=== PATIENT | female | born 1935 | race Caucasian/White ===

== ENCOUNTER → 2016-05-09 | Outpatient (CLI) | payer OTHER, MEDICARE ==
[2016-05-09 16:23] LABS: HEMOGLOBIN A1C 8.93 % (4.2-6.0); MEAN BLOOD GLUCOSE (CALC) 211.369 mg/dL
[2016-05-09 16:26] LABS: CALCIUM 10.9 mg/dL (8.7-10.7); PHOSPHORUS 3.5 mg/dl (2.4-4.3); POTASSIUM 4.4 meq/L (3.8-5.2)
== END ==
LOC: MOB LAB 14:50
DX: E10.9 Type 1 diabetes mellitus without complications (principal); Z79.4 Long term (current) use of insulin; E83.52 Hypercalcemia; R91.8 Other nonspecific abnormal finding of lung field; E10.65 Type 1 diabetes mellitus with hyperglycemia; J44.9 Chronic obstructive pulmonary disease, unspecified; I10 Essential (primary) hypertension; E03.9 Hypothyroidism, unspecified; E55.9 Vitamin D deficiency, unspecified; F17.219 Nicotine dependence, cigarettes, with unspecified nicotine-induced disorders
CPT/HCPCS: 36415; 80048; 83036; 84100; 99213; G0463

== ENCOUNTER 2016-09-15 12:10 | Inpatient (IN) | payer OTHER, MEDICARE ==
[2016-09-15] MEDS ORDERED: ONDANSETRON 4 MG/2 ML VIAL IVP ONE (12:11)
[2016-09-15] MEDS ORDERED: Sodium Chloride 0.9% 1,000 ML PRIMARY IV ONE (12:11)
--- NOTE | 2016-09-15 12:18 | PDOC ---
General Adult HPI - General Chief Complaint: Diabetic Complaint Stated Complaint: DIABETIC CONCERN Date Seen by Provider: 09/15/16 Time Seen by Provider: 12:13 Source: POSITIVE: EMS Exam Limitations: POSITIVE: Clinical condition Nurse's Notes Reviewed & Considered: Yes - History of Present Illness Initial Comment: Patient was found to be obtunded by health caregiver at home. EMS was contacted and has transported patient to the emergency department for evaluation. In route to glucose was read above the level of the device and registers high. This device registers only to 500. Patient received 700 mL of normal saline in route. Review of systems are unavailable because the patient' s obtundation. She will open her eyes to command and speaks yes or no answers but is minimally communicative. Have you received a tetanus shot in the past 10 years?: Yes Timing: REPORTS: Unknown Duration: Unknown Severity: Severe Similar Symptoms Previously: No Recent Care Received: REPORTS: Denies Any Prior Injuries Related to Current Complaint?: No - Patient Home Medications Home Medications: Home Medications Ipratropium/Albuterol Sulfate [Duoneb 2.5-0.5 Mg/3 Ml Soln] 3 ml NEB QID 30 Days 08/03/12 Oxygen (O2) 1 unit #1 unit 11/12/12 Lancets [Accu-Chek Softclix] 1 strip MC TID PRN #100 each 03/04/14 Omeprazole 1 tab PO QD #30 tab 03/16/15 Simethicone [Gas-X] 1 tab PO QD PRN #90 cap 03/16/15 Syringe and Needle,Insulin,1Ml [Insulin Syringe] 1 each MC QID #120 each Furosemide [Lasix] 1 tab PO DAILY #90 tab 10/08/15 Blood Sugar Diagnostic [Accu-Chek Viviane Plus] 1 each MC TID PRN #100 strip 11/09 Insulin Aspart [Novolog] 100 unit SQ TID #1 vial 11/10/15 Insulin Glargine Inj [Lantus Inj] 15 unit SQ QAM #1 vial 05/10/16 Amlodipine Besylate [Norvasc] 1 tab PO QD #30 tablet 08/05/16 Potassium Chloride [Klor-Con 10] 1 tab PO QD #30 tab 08/05/16 Levothyroxine Sodium [Synthroid] 1 tab PO QD #30 tab 09/05/16 Albuterol/Ipratropium Inhaler [Combivent Respimat Inhaler] 1 puff INH QID PRN # 4 inhaler 09/13/16 - Patient Allergies Allergies/Adverse Reactions: Allergies Allergy/AdvReac Type Severity Reaction Status Date / Time codeine Allergy Intermediate HEADACHE Verified 09/15/16 12:18 epinephrine Allergy Intermediate HIVES Verified 09/15/16 12:18 Past Medical History - heen HEENT History: Denies History Cardiovascular History: Hypertension Respiratory History: COPD, Emphysema, Shortness of Breath, Home Oxygen Use Gastrointestinal History: Denies History Genitourinary History: Denies History Endocrine History: Type 2 Diabetes (insulin), Hypothyroidism Musculoskeletal History: Denies History Prosthesis or Implant: No Neurological History: Denies History Blood Disorders: Denies History Psychiatric History: Denies History History of Sexually Transmitted Diseases: No Cancer History: Denies History, Skin History of MDRO: No History of Other Communicable Diseases: No Alcohol Use: None Substance Use Type: None Previous Surgical History: Yes Anesthesia Reactions: No Malignant Hyperthermia: No Significant Family History: No pertinent family hx ROS - Limitations ROS Limitations: Clinical Condition (Further review of systems are unavailable because the patient's obtundation.), Mental Impairment General Adult Exam - General Appearance General Appearance: POSITIVE: Lethargic, Obtunded - HEENT HEENT: POSITIVE: Head Inspection Nml, Eyes Inspection Nml, Ears Inspection Nml, Nose Inspection Nml, PERRL, EOMI, Dry Mucous Membranes - Pupils Pupil Size: 5 mm: Bilateral - Neck Neck: POSITIVE: Normal Inspection, Thyroid Normal - Respiratory Respiratory: POSITIVE: Other (Tachypnea with Kussmaul's type pattern) - Cardiovascular Cardiovascular: POSITIVE: Regular Rate & Rhythm - Abdomen Abdomen: Soft: (All Quadrants), Normal Bowel Sounds: (All Quadrants), Denies Tenderness: (All Quadrants), No Splenomegaly: (All Quadrants), No Hepatomegaly: (All Quadrants), No Guarding: (All Quadrants), No Rebound: (All Quadrants), No Palpable Pulse: (All Quadrants), No Palpabale Mass: (All Quadrants), No Distention: (All Quadrants), No Rigidity: (All Quadrants) - Back Back: POSITIVE: Normal Inspection - Skin Skin: POSITIVE: Normal Color, Warm, Dry, No Rash - Extremities Extremity: Non-Tender: (All Extremities), Normal ROM: (All Extremities), Normal Inspection: (All Extremities), Pelvis Stable: (All Extremities) - Neurological / Psychological Neurological: 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, Motor Normal, Sensation Normal, Disoriented To Place, Disoriented To Time, Weakness Reflexes: Patellar (R): 3+, Patellar (L): 3+, Radial (R): 3+, Radial (L): 3+ General Adult Progress - Results Reviewed by me Xrays/CTs/US Reviewed by me: Yes Discussed with Radiologist: Yes Lab Results Reviewed: Yes Lab Results:: Laboratory Results 09/15/16 09/15/16 09/15/16 Range/Units 11:50 12:00 12:30 WBC 11.55 H (4.8-10.8) 10^3/uL RBC 4.04 L (4.20-5.40) 10^6/uL Hgb 12.4 (12.0-16.0) g/dL Hct 39.9 (37.0-47.0) % MCV 98.8 (81-99) FL MCH 30.7 (27-31) PG MCHC 31.1 L (33-37) g/dL RDW Std Deviation 48.0 (39-50) fL RDW Coeff of Ibis 13.6 (11.5-14.5) % Plt Count 205 (140-350) 10*3/uL MPV 12.4 H (7.4-12.2) FL Immature Gran % (Auto) 0.2 (0-5) % Neut % (Auto) 87.1 H (50-80) % Lymph % (Auto) 6.5 L (10-50) % [place] % (Auto) 5.8 (5-15) % Eos % (Auto) 0 (0-8) % Baso % (Auto) 0.4 (0-1) % Immature Gran # (Auto) 0.02 10*3/UL Neut # (Auto) 10.06 10*3/UL Lymph # (Auto) 0.75 10*3/uL [place] # (Auto) 0.67 (0.3-0.8) 10*3/UL Eos # (Auto) 0 10*3/UL Baso # (Auto) 0.05 10*3/UL WBC Morphology Comment Normal morphology (NORM) Plt Morphology Comment Normal morphology (NORM) RBC Morph Comment Normal morphology (NORM) VBG pH 7.29 L (7.32-7.42) VBG pCO2 48 (45-55) mmHg VBG HCO3 23 (22-26) mmol/L VBG Base Excess -3 L (-2-2) MMOL/L Sodium 134 L (135-145) meq/L Potassium 5.5 H (3.8-5.2) meq/L Chloride 88 L (98-112) meq/L Carbon Dioxide 23 (23-33) meq/L Anion Gap 23 H (5-20) BUN 61 H (7-22) mg/dL Creatinine 2.0 H (0.50-1.20) mg/dL Estimated GFR Perfect Binder Setter BUN/Creatinine Ratio 30.50 H (6-20) Glucose 784 H* (78-110) mg/dL Mean Blood Glucose 197.716 mg/dL Hemoglobin A1c 8.52 H (4.2-6.0) % Calculated Osmolality 332.0 H (267-292) mOsm/kg Lactic Acid 3.3 H (0.70-2.10) MMOL/L Calcium 10.7 (8.7-10.7) mg/dL Magnesium 2.1 (1.6-2.4) mg/dL Total Bilirubin 0.7 (0.3-1.2) mg/dL AST 28 (8-39) IU/L ALT 37 (9-52) IU/L Alkaline Phosphatase 115 (38-126) IU/L Troponin I 0.029 (< 0.040) ng/mL NT-Pro-B Natriuret Pep 807 H (0-450) PG/ML Total Protein 6.8 (6.1-8.0) g/dL Albumin 4.0 (3.5-4.8) g/dL Globulin 2.8 (2.50-4.10) g/dL Albumin/Globulin Ratio 1.40 (1.3-2.0) mg/g Ur Collection Type Urine Color Urine Clarity (CLEAR) Urine pH (5.0-8.5) Ur Specific [place] (1.005-1.030) Urine Protein (NEG) mg/dl Urine Glucose (UA) (NEG) mg/dL Urine Ketones (NEG) Urine Occult Blood (NEG) Urine Nitrate (NEG) Urine Bilirubin (NEG) Urine Urobilinogen (0.2) EU/dL Ur Leukocyte Esterase (NEG) Urine RBC (NONE) /hpf Urine WBC (NONE) Ur Squamous Epith Cells (NONE) Ur Renal Epithelial Cell (NONE) Urine Crystals Urine Bacteria (NONE) Urine Casts (NONE) Urine Mucus (NONE) Urine Trichomonas (NONE) Urine Yeast (NONE) Ur Culture Indicated? Acetone Level Small (NEGATIVE) 09/15/16 Range/Units 13:24 WBC (4.8-10.8) 10^3/uL RBC (4.20-5.40) 10^6/uL Hgb (12.0-16.0) g/dL Hct (37.0-47.0) % MCV (81-99) FL MCH (27-31) PG MCHC (33-37) g/dL RDW Std Deviation (39-50) fL RDW Coeff of Ibis (11.5-14.5) % Plt Count (140-350) 10*3/uL MPV (7.4-12.2) FL Immature Gran % (Auto) (0-5) % Neut % (Auto) (50-80) % Lymph % (Auto) (10-50) % [place] % (Auto) (5-15) % Eos % (Auto) (0-8) % Baso % (Auto) (0-1) % Immature Gran # (Auto) 10*3/UL Neut # (Auto) 10*3/UL Lymph # (Auto) 10*3/uL [place] # (Auto) (0.3-0.8) 10*3/UL Eos # (Auto) 10*3/UL Baso # (Auto) 10*3/UL WBC Morphology Comment (NORM) Plt Morphology Comment (NORM) RBC Morph Comment (NORM) VBG pH (7.32-7.42) VBG pCO2 (45-55) mmHg VBG HCO3 (22-26) mmol/L VBG Base Excess (-2-2) MMOL/L Sodium (135-145) meq/L Potassium (3.8-5.2) meq/L Chloride (98-112) meq/L Carbon Dioxide (23-33) meq/L Anion Gap (5-20) BUN (7-22) mg/dL Creatinine (0.50-1.20) mg/dL Estimated GFR BUN/Creatinine Ratio (6-20) Glucose (78-110) mg/dL Mean Blood Glucose mg/dL Hemoglobin A1c (4.2-6.0) % Calculated Osmolality (267-292) mOsm/kg Lactic Acid (0.70-2.10) MMOL/L Calcium (8.7-10.7) mg/dL Magnesium (1.6-2.4) mg/dL Total Bilirubin (0.3-1.2) mg/dL AST (8-39) IU/L ALT (9-52) IU/L Alkaline Phosphatase (38-126) IU/L Troponin I (< 0.040) ng/mL NT-Pro-B Natriuret Pep (0-450) PG/ML Total Protein (6.1-8.0) g/dL Albumin (3.5-4.8) g/dL Globulin (2.50-4.10) g/dL Albumin/Globulin Ratio (1.3-2.0) mg/g Ur Collection Type Cath specimen Urine Color Yellow Urine Clarity Clear (CLEAR) Urine pH 5.0 (5.0-8.5) Ur Specific [place] 1.020 (1.005-1.030) Urine Protein 30 (NEG) mg/dl Urine Glucose (UA) 500 (NEG) mg/dL Urine Ketones Trace (NEG) Urine Occult Blood Negative (NEG) Urine Nitrate Negative (NEG) Urine Bilirubin Small (NEG) Urine Urobilinogen 0.2 (0.2) EU/dL Ur Leukocyte Esterase Negative (NEG) Urine RBC None (NONE) /hpf Urine WBC None (NONE) Ur Squamous Epith Cells Few (NONE) Ur Renal Epithelial Cell None (NONE) Urine Crystals None Urine Bacteria None (NONE) Urine Casts Moderate (NONE) Urine Mucus None (NONE) Urine Trichomonas None (NONE) Urine Yeast None (NONE) Ur Culture Indicated? Culture not set Acetone Level (NEGATIVE) - Patient's Progress Re-Examine Time: 14:32 Status: POSITIVE: Unchanged MDM / ED Course: Patient was examined, an IV started, blood drawn and sent to the lab for studies , blood cultures were obtained. Findings: Glucose was noted to be almost 800, hemoglobin A1c was elevated at over 8.5. Ketones were a small amount. Chest x-ray showed increasing right lung mass and perihilar mass. Assessment: Hyperglycemia with probable hyperosmolar, hyperglycemic non- ketoacidotic syndrome. Lung mass, probable cancer. Plan: Admission for comfort care. Antibiotics Given: No Quality Measure Initiative: CAP: POSITIVE: CXR or CT - Consult Consult (If Yes, Name of Consulting MD & Time Called): Yes (Dr. Guido Hernadezs) Consulting MD will see pt:: POSITIVE: [facility] [place] Admit Counseled: POSITIVE: Family, RE: Lab Results, RE: Radiology Results, RE: DX Patient Care Time - Estimated PCT Patient Care Time (In Minutes): 45 Vital Signs - Recent Vital Signs Vital Signs: Vital Signs (Last 8 hours) Temp Pulse Resp BP Pulse Ox 09/15/16 12:10 98.8 F 102 H 20 101/43 98 - VS Reviewed Vital Signs Reviewed: Yes Discharge Clinical Impression: Altered mental status, Diabetes mellitus with hyperosmolar coma Discharge Disposition: Admit to Inpatient Condition: Poor Patient Instructions Given at Discharge: Hyperosmolar Hyperglycemic State (ED) Date Decision to Admit to Inpatient: 09/15/16 Time Decision to Admit to Inpatient: 13:45
[2016-09-15 12:20] LABS: BASOPHILS # (AUTO) 0.05 10*3/UL; BASOPHILS % (AUTO) 0.4 % (0-1); EOSINOPHILS # (AUTO) 0 10*3/UL; EOSINOPHILS % (AUTO) 0 % (0-8); HEMATOCRIT 39.9 % (37.0-47.0); HEMOGLOBIN 12.4 g/dL (12.0-16.0); LYMPHOCYTES # (AUTO) 0.75 10*3/uL; MEAN CORPUSCULAR HEMOGLOBIN 30.7 PG (27-31); MEAN CORPUSCULAR HGB CONC 31.1 g/dL (33-37); MEAN CORPUSCULAR VOLUME 98.8 FL (81-99); MEAN PLATELET VOLUME 12.4 FL (7.4-12.2); MONOCYTES # (AUTO) 0.67 10*3/UL (0.3-0.8); MONOCYTES % (AUTO) 5.8 % (5-15); NEUTROPHILS # (AUTO) 10.06 10*3/UL; NEUTROPHILS % (AUTO) 87.1 % (50-80); RED BLOOD COUNT 4.04 10^6/uL (4.20-5.40)
[2016-09-15 12:22] LABS: PLATELET MORPHOLOGY COMMENT NORMAL MORPHOLOGY (NORM); RBC MORPHOLOGY COMMENT NORMAL MORPHOLOGY (NORM); WBC MORPHOLOGY COMMENT NORMAL MORPHOLOGY (NORM)
[2016-09-15 12:34] LABS: HEMOGLOBIN A1C 8.52 % (4.2-6.0)
[2016-09-15 12:43] LABS: BLOOD UREA NITROGEN 61 mg/dL (7-22); CALCIUM 10.7 mg/dL (8.7-10.7); MAGNESIUM 2.1 mg/dL (1.6-2.4)
--- NOTE | 2016-09-15 13:00 | DI ---
XR CXR 1VW,09/15/2016 12:11 PM: Clinical History: Obtunded Previous Exam: January 31, [address] chest performed January 31, 2016 Findings: A single frontal radiograph of the chest is obtained, and demonstrates interval increase in the size of a left solitary pulmonary mass which now measures 3.5 cm in long axis. There is also enlargement of the right hilum. There are some increased interstitial markings when compared with the prior exam. There is stable sco liosis and ectasia of the descending thoracic aorta. The skeletal structures are unremarkable. Impression: 1. Enlarging left solitary pulmonary mass now measuring 3.5 cm in long axis. 2. Enlarging right hilar mass. 3. Increased interstitial markings throughout the lung carlos.
[2016-09-15 13:40] LABS: BILIRUBIN,URINE SMALL (NEG); CLARITY,URINE CLEAR (CLEAR); COLOR,URINE YELLOW; GLUCOSE, URINE (UA) 500 mg/dL (NEG); NITRATE,URINE NEGATIVE (NEG); OCCULT BLOOD,URINE NEGATIVE (NEG); PROTEIN,URINE 30 mg/dl (NEG); UROBILINOGEN,URINE 0.2 EU/dL (0.2)
[2016-09-15 13:42] LABS: SQUAMOUS EPITHELIAL CELL,UR FEW; URINE CASTS MODERATE; URINE SAMPLE TYPE CATH SPECIMEN
[2016-09-15 14:08] LABS: VENOUS PH 7.29 (7.32-7.42)
--- NOTE | 2016-09-15 15:25 | PDOC ---
History and Physical - History of Present Illness History of Present Illness: This very nice 80-year-old female with multiple medical issues consistent when the lung mass which is undiagnosed was brought to the ER because of the was found obtunded by the caregiver at home. In the ER she was found to have a high glucose of around 800, acidotic hyperkalemia and congestive heart failure. Dr. Erwin long discussion with the family and the the patient's wish she wishes were which are very clear is to be kept comfortable and to not treat and to let nature take its course. I discussed the case with the family and the patient she does awaken know her name she agrees and and demands that being Comfortable with no treatment whatsoever. Also the family and made to me and Dr. Erwin aware that these were her specific wishes and the plan is to admit the patient for comfort care and no oral medications in the telemetry monitors and to keep respirations between 8 and 10 with IV morphine pushes to be reevaluated as things proceed or if things change Patient is an hyperosmolar state state diabetic coma plus lung mass which showed most likely resembles cancer and severe lower extremity edema and shortness of breath with congestive heart failure with elevated BNP and COPD exacerbation patient being a heavy smoker. Past Medical History Medical History: Diabetes, emphysema, lung mass Tobacco Use: Current Every Day Smoker Do you dip or chew tobacco: No Substance Use Type: None Medication / Allergies Home Medications: Home Medications Medication Instructions Recorded Confirmed Type Ipratropium/Albuterol Sulfate 3 ml NEB QID 30 Days 08/03/12 09/15/16 Clinic [Duoneb 2.5-0.5 Mg/3 Ml Soln] Oxygen (O2) 1 unit #1 unit 11/12/12 Clinic Lancets [Accu-Chek Softclix] 1 strip MC TID PRN #100 each 03/04/14 09/15/16 Clinic Omeprazole 1 tab PO QD #30 tab 03/16/15 09/15/16 Clinic Simethicone [Gas-X] 1 tab PO QD PRN #90 cap 03/16/15 09/15/16 Clinic Syringe and Needle,Insulin,1Ml 1 each MC QID #120 each 09/30/15 09/15/16 Clinic [Insulin Syringe] Furosemide [Lasix] 1 tab PO DAILY #90 tab 10/08/15 09/15/16 Clinic Blood Sugar Diagnostic [Accu-Chek 1 each MC TID PRN #100 strip 11/10/15 Clinic Viviane Plus] Insulin Aspart [Novolog] 100 unit SQ TID #1 vial 11/10/15 09/15/16 [facility] Insulin Glargine Inj [Lantus Inj] 15 unit SQ QAM #1 vial 05/10/16 09/15/16 [facility] Amlodipine Besylate [Norvasc] 1 tab PO QD #30 tablet 08/05/16 09/15/16 [facility] Potassium Chloride [Klor-Con 10] 1 tab PO QD #30 tab 08/05/16 09/15/16 [facility] Levothyroxine Sodium [Synthroid] 1 tab PO QD #30 tab 09/05/16 09/15/16 [facility] Albuterol/Ipratropium Inhaler 1 puff INH QID PRN #4 inhaler 09/13/16 09/15/16 [facility] [Combivent Respimat Inhaler] Allergies/Adverse Reactions: Allergies Allergy/AdvReac Type Severity Reaction Status Date / Time codeine Allergy Intermediate HEADACHE Verified 09/15/16 12:18 epinephrine Allergy Intermediate HIVES Verified 09/15/16 12:18 Review of Systems - Review of Systems ROS Unobtainable: Due to Mental Status Exam - Vitals Vital Signs: Vital Signs Temperature 98.8 F Temperature Source Axillary Pulse Rate [Pulse Oximeter 102 Right] Respiratory Rate 20 Blood Pressure [Left Arm] 101/43 Pulse Ox 98 Oxygen Flow Rate 3 LPM Oxygen Delivery Method Nasal Cannula Height 5 ft 2 in Weight 49.895 kg - General General Appearance: POSITIVE: No Acute Distress - Respiratory Respiratory Exam: POSITIVE: Decreased Breath Sounds, Crackles - Cardiovascular Cardiovascular Exam: POSITIVE: RRR, Tachycardia - GI/Abdominal GI/Abdominal Exam: POSITIVE: Non Tender, Non Distended, Soft - Extremities Extremities Exam: POSITIVE: +3 Edema - Neurological Additional Neurological Exam Details: Patient is semi-obtunded she does say a few words when called Results - Labs CBC and BMP: 09/15/16 11:50 09/15/16 11:50 Labs - Last 24 Hours: Laboratory Results 09/15/16 09/15/16 09/15/16 Range/Units 11:50 12:00 12:30 WBC 11.55 H (4.8-10.8) 10^3/uL RBC 4.04 L (4.20-5.40) 10^6/uL Hgb 12.4 (12.0-16.0) g/dL Hct 39.9 (37.0-47.0) % MCV 98.8 (81-99) FL MCH 30.7 (27-31) PG MCHC 31.1 L (33-37) g/dL RDW Std Deviation 48.0 (39-50) fL RDW Coeff of Ibis 13.6 (11.5-14.5) % Plt Count 205 (140-350) 10*3/uL MPV 12.4 H (7.4-12.2) FL Immature Gran % (Auto) 0.2 (0-5) % Neut % (Auto) 87.1 H (50-80) % Lymph % (Auto) 6.5 L (10-50) % [place] % (Auto) 5.8 (5-15) % Eos % (Auto) 0 (0-8) % Baso % (Auto) 0.4 (0-1) % Immature Gran # (Auto) 0.02 10*3/UL Neut # (Auto) 10.06 10*3/UL Lymph # (Auto) 0.75 10*3/uL [place] # (Auto) 0.67 (0.3-0.8) 10*3/UL Eos # (Auto) 0 10*3/UL Baso # (Auto) 0.05 10*3/UL WBC Morphology Comment Normal morphology (NORM) Plt Morphology Comment Normal morphology (NORM) RBC Morph Comment Normal morphology (NORM) VBG pH 7.29 L (7.32-7.42) VBG pCO2 48 (45-55) mmHg VBG HCO3 23 (22-26) mmol/L VBG Base Excess -3 L (-2-2) MMOL/L Sodium 134 L (135-145) meq/L Potassium 5.5 H (3.8-5.2) meq/L Chloride 88 L (98-112) meq/L Carbon Dioxide 23 (23-33) meq/L Anion Gap 23 H (5-20) BUN 61 H (7-22) mg/dL Creatinine 2.0 H (0.50-1.20) mg/dL Estimated GFR Service Now Developer BUN/Creatinine Ratio 30.50 H (6-20) Glucose 784 H* (78-110) mg/dL Mean Blood Glucose 197.716 mg/dL Hemoglobin A1c 8.52 H (4.2-6.0) % Calculated Osmolality 332.0 H (267-292) mOsm/kg Lactic Acid 3.3 H (0.70-2.10) MMOL/L Calcium 10.7 (8.7-10.7) mg/dL Magnesium 2.1 (1.6-2.4) mg/dL Total Bilirubin 0.7 (0.3-1.2) mg/dL AST 28 (8-39) IU/L ALT 37 (9-52) IU/L Alkaline Phosphatase 115 (38-126) IU/L Troponin I 0.029 (< 0.040) ng/mL NT-Pro-B Natriuret Pep 807 H (0-450) PG/ML Total Protein 6.8 (6.1-8.0) g/dL Albumin 4.0 (3.5-4.8) g/dL Globulin 2.8 (2.50-4.10) g/dL Albumin/Globulin Ratio 1.40 (1.3-2.0) mg/g Ur Collection Type Urine Color Urine Clarity (CLEAR) Urine pH (5.0-8.5) Ur Specific [place] (1.005-1.030) Urine Protein (NEG) mg/dl Urine Glucose (UA) (NEG) mg/dL Urine Ketones (NEG) Urine Occult Blood (NEG) Urine Nitrate (NEG) Urine Bilirubin (NEG) Urine Urobilinogen (0.2) EU/dL Ur Leukocyte Esterase (NEG) Urine RBC (NONE) /hpf Urine WBC (NONE) Ur Squamous Epith Cells (NONE) Ur Renal Epithelial Cell (NONE) Urine Crystals Urine Bacteria (NONE) Urine Casts (NONE) Urine Mucus (NONE) Urine Trichomonas (NONE) Urine Yeast (NONE) Ur Culture Indicated? Acetone Level Small (NEGATIVE) 09/15/16 Range/Units 13:24 WBC (4.8-10.8) 10^3/uL RBC (4.20-5.40) 10^6/uL Hgb (12.0-16.0) g/dL Hct (37.0-47.0) % MCV (81-99) FL MCH (27-31) PG MCHC (33-37) g/dL RDW Std Deviation (39-50) fL RDW Coeff of Ibis (11.5-14.5) % Plt Count (140-350) 10*3/uL MPV (7.4-12.2) FL Immature Gran % (Auto) (0-5) % Neut % (Auto) (50-80) % Lymph % (Auto) (10-50) % [place] % (Auto) (5-15) % Eos % (Auto) (0-8) % Baso % (Auto) (0-1) % Immature Gran # (Auto) 10*3/UL Neut # (Auto) 10*3/UL Lymph # (Auto) 10*3/uL [place] # (Auto) (0.3-0.8) 10*3/UL Eos # (Auto) 10*3/UL Baso # (Auto) 10*3/UL WBC Morphology Comment (NORM) Plt Morphology Comment (NORM) RBC Morph Comment (NORM) VBG pH (7.32-7.42) VBG pCO2 (45-55) mmHg VBG HCO3 (22-26) mmol/L VBG Base Excess (-2-2) MMOL/L Sodium (135-145) meq/L Potassium (3.8-5.2) meq/L Chloride (98-112) meq/L Carbon Dioxide (23-33) meq/L Anion Gap (5-20) BUN (7-22) mg/dL Creatinine (0.50-1.20) mg/dL Estimated GFR BUN/Creatinine Ratio (6-20) Glucose (78-110) mg/dL Mean Blood Glucose mg/dL Hemoglobin A1c (4.2-6.0) % Calculated Osmolality (267-292) mOsm/kg Lactic Acid (0.70-2.10) MMOL/L Calcium (8.7-10.7) mg/dL Magnesium (1.6-2.4) mg/dL Total Bilirubin (0.3-1.2) mg/dL AST (8-39) IU/L ALT (9-52) IU/L Alkaline Phosphatase (38-126) IU/L Troponin I (< 0.040) ng/mL NT-Pro-B Natriuret Pep (0-450) PG/ML Total Protein (6.1-8.0) g/dL Albumin (3.5-4.8) g/dL Globulin (2.50-4.10) g/dL Albumin/Globulin Ratio (1.3-2.0) mg/g Ur Collection Type Cath specimen Urine Color Yellow Urine Clarity Clear (CLEAR) Urine pH 5.0 (5.0-8.5) Ur Specific [place] 1.020 (1.005-1.030) Urine Protein 30 (NEG) mg/dl Urine Glucose (UA) 500 (NEG) mg/dL Urine Ketones Trace (NEG) Urine Occult Blood Negative (NEG) Urine Nitrate Negative (NEG) Urine Bilirubin Small (NEG) Urine Urobilinogen 0.2 (0.2) EU/dL Ur Leukocyte Esterase Negative (NEG) Urine RBC None (NONE) /hpf Urine WBC None (NONE) Ur Squamous Epith Cells Few (NONE) Ur Renal Epithelial Cell None (NONE) Urine Crystals None Urine Bacteria None (NONE) Urine Casts Moderate (NONE) Urine Mucus None (NONE) Urine Trichomonas None (NONE) Urine Yeast None (NONE) Ur Culture Indicated? Culture not set Acetone Level (NEGATIVE) Assessment and Plan - Patient Problems (1) Altered mental status Current Visit: Yes Status: Acute (2) Hyperosmolar (nonketotic) coma Current Visit: Yes Status: Acute (3) Bronchitis Current Visit: No Status: Acute (4) COPD (chronic obstructive pulmonary disease) Current Visit: No Status: Acute (5) Pulmonary mass Current Visit: No Status: Acute - Assessment / Plan Additional Assessment/Plan Details: Patient will be admitted for comfort we will titrate respirations between 8 and 10 with IV morphine drip as per patient's wishes and family discussed with nursing and aids social worker
[2016-09-15] MEDS ORDERED: NORMAL SALINE 10 ML SYRINGE FLUSH IVP PRN (15:44)
[2016-09-15] MEDS ORDERED: ONDANSETRON 4 MG/2 ML VIAL IVP PRN (15:44)
[2016-09-15] MEDS ORDERED: Morphine Sulfate Inj 250 MG in Sodium Chloride 0.9% 245 ML IV SCH (15:44)
[2016-09-15] MEDS ORDERED: LIDOCAINE W/ SODIUM BICARB 0.5 ML SYR SUBD PRN (15:44)
[2016-09-15 17:59] VITALS: RESP 22; TEMP 99.3
--- NOTE | 2016-09-16 21:46 | DCSUMMARY ---
Hospitalization Summary Hospital Course: Final Discharge Diagnosis: Diagnostic Data, Laboratory Data, and Procedures of Signifigance: History and Physical pertinent to Admission: Course of Hospitalization: Assessment and Plan: 1. As per discharge assessments above 2. Disposition: 3. Condition on discharge, stable and improved. 4. Diet: regular diet 5. Activities: resume normal activities 6. Follow-Up: 1. [PCP] 2. 7. Medications at the Time of Discharge: 8. Time, care, counseling and coordination of care for this discharge is greater than 30 minutes. Exam - Vitals Vital Signs: Vital Signs Temperature 99.3 F Temperature Source Temporal Artery Scan Pulse Rate [Apical] 70 Pulse Rate [Pulse Oximeter 105 Right] Respiratory Rate 22 Blood Pressure [Right Arm] 125/46 Pulse Ox 93 Oxygen Flow Rate 4 Oxygen Delivery Method Nasal Cannula Height 5 ft 2 in Weight 49.895 kg Patient Problems - Patient Problem List (1) Altered mental status Status: Acute (2) Hyperosmolar (nonketotic) coma Status: Acute (3) Bronchitis Status: Acute (4) COPD (chronic obstructive pulmonary disease) Status: Acute (5) Pulmonary mass Status: Acute
== END 2016-09-15 23:23 | disposition expired | DRG 999 ==
LOC: ER 12:10 → MED/SURG 15:25
PROVIDERS: ADMIT Internal Medicine; ATTEND Internal Medicine
DX: R41.82 Altered mental status, unspecified (principal); E11.01 Type 2 diabetes mellitus with hyperosmolarity with coma; J44.9 Chronic obstructive pulmonary disease, unspecified; R91.8 Other nonspecific abnormal finding of lung field
CPT/HCPCS: 36415; 71010; 80053; 81001; 81003; 82009; 82803; 82948; 83036; 83605; 83735; 83880; 84484; 85025; 87040; 96360; 96361; 99285; J7030; J7050